=== PATIENT | female | born 1945 | race Caucasian/White ===

== ENCOUNTER → 2023-04-13 | Outpatient (CLI) | payer MEDICARE, SELFPAY ==
--- NOTE | 2023-04-13 17:10 | MRI_ITS ---
INDICATION: Neck pain -- Concentrate on T1 and T2, f/u to findings on prior outside c spine images EXAMINATION: MRI - MR Spine Thoracic WO/W Contrast TECHNIQUE: Multiplanar and multisequence MR images of the thoracic spine. IV Contrast Dosage and Agent: 17 mm IV clariscan. COMPARISON: Cervical spine MRI August 18, 2022 thoracic and cervical spine radiograph April 02, 2023. FINDINGS: VERTEBRAE: No fracture or acute compression deformity. Mild chronic low signal endplate degenerative change at T1-T2 with small posterior disc osteophyte complex causing mild spinal canal stenosis and moderate bilateral neural foraminal narrowing. Mild chronic anterior height loss midthoracic spine with mildly exaggerated kyphosis. 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 . Upper lumbar spine acute endplate degenerative change. DISCS: Otherwise diffuse minimal posterior disc osteophyte complexes throughout the thoracic spine with minimal wspinal canal stenosis. CORD: Unremarkable in signal and morphology. No abnormal intramedullary or extramedullary enhancing mass.. Inhomogeneous fat saturation noted at the lower cervical and upper thoracic spine. SOFT TISSUES: Unremarkable. MRI/Spine Thoracic W/WO Contrast IMPRESSION: Mild chronic T1-T2 endplate degenerative change with small posterior disc osteophyte complex causing mild spinal canal stenosis and moderate bilateral neural foraminal narrowing. Mild spondylosis as above. Electronically Signed: Glen Robles MD at 8:10 EDT ,
[2023-04-13 17:34] LABS: CREATININE FINGERSTICK 1.3 mg/dL (0.55-1.02)
== END | disposition home or self-care (01) ==
PROVIDERS: PCP Family Medicine; Referring Provider Orthopaedic Surgery; Visit Provider Orthopaedic Surgery
DX: M51.24 Other intervertebral disc displacement, thoracic region (principal); M50.323 Other cervical disc degeneration at C6-C7 level
CPT/HCPCS: 72157; A9575